=== PATIENT | female | born 1980 | race Two or more races ===

== ENCOUNTER 2017-01-14 18:56 | Emergency (ER) | payer MEDICAID ==
[~2017-01-14] VITALS: Ht 147.3 cm; Wt 127.0 kg
[~2017-01-14 18:56] MED LIST: ONDA8TAB9 PO
[2017-01-14 19:30] VITALS: BP 170/118
[2017-01-14 21:04] LABS: Urine Bilirubin Negative (Negative); Urine Blood Negative /uL (Negative); Urine Color Yellow (Yellow); Urine Glucose Normal (Normal); Urine Ketone Negative (Negative); Urine Nitrite Negative (Negative); Urine RBC <1 /hpf (0 - 4); Urine Squamous Epithelial Cell FEW /hpf (<5); Urine Urobilinogen Normal (Negative); Urine pH 6.5 (5.0-8.0)
== END 2017-01-15 00:10 | disposition home or self-care (01) ==
LOC: ER 19:07
DX: J40 Bronchitis, not specified as acute or chronic (principal); R07.9 Chest pain, unspecified
CPT/HCPCS: 71010; 81001; 81025

== ENCOUNTER 2017-11-10 17:58 | Emergency (ER) | payer MEDICAID ==
[~2017-11-10] VITALS: Ht 144.8 cm; Wt 81.6 kg
[~2017-11-10 17:58] MED LIST changes: +ONDA-133 PO; -ONDA8TAB9 PO
[2017-11-10 20:36] VITALS: BP 151/101
== END 2017-11-10 21:14 | disposition home or self-care (01) ==
LOC: ER 17:58
DX: J40 Bronchitis, not specified as acute or chronic (principal)